=== PATIENT | male | born 1975 | race Caucasian/White ===

== ENCOUNTER 2016-10-20 10:38 | Emergency (ER) | payer SELFPAY ==
[~2016-10-20] VITALS: Ht 162.6 cm; Wt 81.6 kg
[2016-10-20 10:38] VITALS: BP 149/61
== END 2016-10-20 11:19 | disposition home or self-care (01) ==
LOC: ER 10:42
DX: L76.22 Postprocedural hemorrhage of skin and subcutaneous tissue following other procedure (principal); I10 Essential (primary) hypertension
CPT/HCPCS: 99281; A4606; Z7610; Z7502